=== PATIENT | male | born 1985 | race Caucasian/White ===

== ENCOUNTER 2018-04-28 08:31 | Emergency (ER) | payer MEDICAID ==
[2018-04-28] MEDS: KETOROLAC 60 MG INJ IM (09:18)
== END 2018-04-28 09:43 | disposition home or self-care (01) ==
LOC: FTE 08:31
DX: M25.562 Pain in left knee (principal)
CPT/HCPCS: 73562; 96372; 99284-25

== ENCOUNTER 2018-06-04 11:04 | Emergency (ER) | payer MEDICAID ==
[2018-06-04] MEDS: KETOROLAC 60 MG INJ IM (12:33)
== END 2018-06-04 13:30 | disposition home or self-care (01) ==
LOC: FTE 11:04
DX: S29.019A Strain of muscle and tendon of unspecified wall of thorax, initial encounter (principal); W06.XXXA Fall from bed, initial encounter; Y92.9 Unspecified place or not applicable
CPT/HCPCS: 96372; 99284-25